=== PATIENT | female | born 1960 | race Caucasian/White ===

== ENCOUNTER → 2017-10-11 11:30 | Outpatient (CLI) | payer OTHER, SELFPAY ==
[2017-10-11 12:37] LABS: Add Manual Diff / Slide Review NO; Basophils Percent Auto 0.8 % (0-2); Eosinophils Percent Auto 1.9 % (2-4); Hematocrit 43.3 % (36-46); Lymphocytes Percent Auto 28.7 % (25-40); Mean Corpuscular HGB Conc 34.6 % (30-36); Mean Corpuscular Hemoglobin 30.9 PG (26-34); Mean Corpuscular Volume 89.5 fL (80-100); Monocytes Percent Auto 7.3 % (3-14); Neutrophils Absolute Auto 4600 /uL (3000-5900); Neutrophils Percent Auto 61.3 % (50-75); Platelet Count 265 X10^3/uL (150-400); Red Blood Cell Count 4.84 X10^6/uL (4.0-5.2); Red Cell Distribution Width 12.4 % (11.6-14.8); White Blood Cell Count 7.5 X10^3/uL (4.5-11.0)
[2017-10-11 12:48] LABS: Hemoglobin A1C% w Est Avg Glu 9.8 % (4.0-6.0)
[2017-10-11 13:04] LABS: Alanine Aminotransferase 84 IU/L (9-52); Albumin 4.6 g/dL (3.5-5.0); Albumin Globulin Ratio 1.7 (1.0-2.8); Alkaline Phosphatase 101 U/L (38-126); Aspartate Aminotransferase 84 IU/L (14-36); BUN Creatinine Ratio 18.3 (6-22); Bilirubin Total 0.7 mg/dL (0.2-1.3); Blood Urea Nitrogen 11 mg/dL (7-17); Carbon Dioxide 31 mmol/L (22-32); Chloride 96 mmol/L (98-107); Cholesterol 303 mg/dL (140-199); Estimated Glomerular Filt Rate > 60.0 mL/min (>60); Globulin 2.7 g/dL (1.7-4.1); Glucose 222 mg/dL (70-100); HDL Cholesterol 48 mg/dL (40-60); HEMOLYSIS < 15 (0-50); Potassium 4.6 mmol/L (3.4-5.1); Sodium 139 mmol/L (137-145); Total Protein 7.3 g/dL (6.3-8.2)
[2017-10-11 13:12] LABS: Triglycerides 679 mg/dL (35-150)
[2017-10-11 15:43] LABS: Creatinine Urine Random 240.5 mg/dL
[2017-10-11 16:00] LABS: Microalbumi Creatinin Ratio Ur 228.2 ug/mg CR (<30); Microalbumin Urine Random 54.9 mg/dL (0-1.6)
[2017-10-11 17:31] LABS: Free T3, Triiodothyronine Free 3.35 pg/mL (2.77-5.27); Free T4, Direct Thyroxine 1.12 ng/dL (0.78-2.19)
[2017-10-11 17:45] LABS: Thyroid Stimulating Hormone 2.44 uIU/mL (0.47-4.68)
== END ==
PROVIDERS: Physician Assistant; PCP Family Medicine; Visit Provider Family Medicine
DX: E10.9 Type 1 diabetes mellitus without complications (principal); E78.1 Pure hyperglyceridemia; I10 Essential (primary) hypertension; E11.9 Type 2 diabetes mellitus without complications; E78.5 Hyperlipidemia, unspecified; L65.9 Nonscarring hair loss, unspecified; Z13.29 Encounter for screening for other suspected endocrine disorder
CPT/HCPCS: 36415; 80053; 80061; 82043; 82570; 83036; 84439; 84443; 84481; 85025

== ENCOUNTER 2017-12-09 18:42 | Emergency (ER) | payer OTHER, SELFPAY ==
[2017-12-09 18:55] VITALS: BP 153/86; PULSE 74; RESP 16; TEMP 36.5; O2SAT 98; BMI 43.0
--- NOTE | 2017-12-09 18:58 | DI.RAD.S_ITS ---
PROCEDURE: XR CHEST 1V INDICATIONS: chest pain TECHNIQUE: One view of the chest was acquired. COMPARISON: [facility], , CHEST 2 VIEW, 04/16/2016, 16:17. FINDINGS: Surgical changes and devices: None. Lungs and pleura: No pleural effusions or pneumothorax. Lungs are clear. Mediastinum: Mediastinal contours appear normal. Heart size is normal. Bones and chest wall: No suspicious bony lesions. Overlying soft tissues appear unremarkable. IMPRESSION: No acute cardiopulmonary pathology. Dictated by: Smith Lerma M.D. on 12/09/2017 at 20:08 Approved by: Smith Lerma M.D. on 12/09/2017 at 20:08
--- NOTE | 2017-12-09 19:17 | ED_ITS ---
HPI - Neck Pain/Injury General Chief Complaint: Neck Pain/Injury Stated Complaint: NAUSEA LEFT SIDE NECK AND FACE PAIN SHOULDER ARM Time Seen by Provider: 12/09/17 19:16 Source: patient Mode of arrival: ambulatory Limitations: no limitations History of Present Illness HPI Narrative: Patient is a 57-year-old female here for evaluation left shoulder and left side of neck pain. Patient states that she is also having nausea. She states that she has a history of migraines and gets nauseous with her migraines. She states that she feels like she is having a ?minor migraine ? right now. States that she has had the symptoms 24 hr a day for the past 3 days. Went to see her chiropractor who told her she needed to come to the emergency department to rule out a heart attack. She is not having any chest pain. She states that her symptoms did start after minute neck adjustment that she had. She states that the chiropractor did not use high velocity with her neck but use the actuator Related Data Home Medications Medication Instructions Recorded Confirmed [COLLINSONIA ROOT] 1,000 mg PO QDAY #0 10/16/15 10/04/17 [COQ10] 200 mg PO QDAY #0 10/16/15 10/04/17 [HERB LAX] #0 10/16/15 10/04/17 [LIVER DTX] #0 10/16/15 10/04/17 [VITALIZED IMMUNITY] #0 10/16/15 10/04/17 [VITAMIN D3] 5,000 iu PO QDAY #0 10/16/15 10/04/17 aspirin 325 mg PO QDAY #0 tab 10/16/15 10/04/17 calcium carbonate 600 mg PO #0 10/16/15 10/04/17 magnesium amino acid chelate 250 mg PO QDAY #0 10/16/15 10/04/17 multivitamin [Multiple Vitamins] 1 tab PO QDAY #0 tab 10/16/15 10/04/17 [SIMPLEX F] #0 04/22/16 10/04/17 naproxen sodium [Aleve] #0 04/22/16 cetirizine 10 mg tablet 10 mg PO DAILY 10/04/17 10/04/17 glucosamine-chondroitin 250 mg-200 2 tab PO QPC 10/04/17 10/04/17 mg tablet metformin 850 mg tablet 850 mg PO ONCE tab 10/04/17 metoprolol succinate ER 50 mg 50 mg PO BID tab 10/04/17 tablet,extended release 24 hr ranitidine 75 mg tablet 75 mg PO DAILY PRN #0 tab 10/04/17 10/04/17 Previous Rx's Medication Instructions Recorded nitroglycerin [Nitrostat] 0.4 mg SUBLINGUAL SEE INSTRUCTIONS 04/16/16 #30 tab naratriptan 2.5 mg PO 1 AT ONSET PRN #12 tab 12/01/16 Glucose: Test Strips str QID #100 12/17/16 Lancet: Device box QID #1 12/17/16 Luck box QID #1 12/17/16 atorvastatin 40 mg tablet 40 mg PO HS #90 tab 10/04/17 fluoxetine 40 mg capsule 80 mg PO DAILY #180 cap 10/04/17 metformin 500 mg tablet 500 mg PO QPM #30 tab 10/04/17 clonazepam 0.5 mg tablet 0.5 mg PO BID PRN #60 tab 11/01/17 hydrocodone 5 mg-acetaminophen 325 1 tab PO Q6HP PRN #30 tab 11/02/17 mg tablet hydrochlorothiazide 25 mg tablet 25 mg PO QDAY #90 tab 11/29/17 metformin 500 mg tablet 500 mg PO DAILY #90 tab 11/29/17 prednisone 40 mg PO DAILY 5 Days #10 tab 12/09/17 Allergies Allergy/AdvReac Type Severity Reaction Status Date / Time mold [MOLD] Allergy Unknown Verified 12/09/17 18:54 penicillin G [PENICILLIN G] Allergy Unknown doesnt Verified 12/09/17 18:54 remember kathleen grass Allergy Unknown Uncoded 05/18/17 12:38 Review of Systems Constitutional Denies fever(s) and Reports headache(s) ENT Ears, Nose, Mouth, and Throat: Denies vertigo, Denies dizziness and Reports headache(s) Cardiovascular Denies chest pain, Denies syncope and Denies dyspnea Respiratory Denies dyspnea Gastrointestinal Gastrointestinal: Denies abdominal pain, Denies nausea and Denies vomiting Genitourinary Denies dysuria Musculoskeletal Reports myalgias (Left-sided neck) and Reports arthralgias (Left shoulder) Integumentary/Breasts Denies rash Neurologic Denies vertigo, Denies dizziness, Denies syncope and Reports headache(s) Hematologic/Lymphatic Denies easy bruising PFSH Medical History Alopecia (Chronic 04/2015) Cardiac arrhythmia (Chronic 1994) Chronic back pain (Chronic 1990) Depression (Chronic 2006) History of recurrent ear infection (Chronic) Hyperlipemia (Chronic) Hypertension (Chronic) Menopause (Chronic 2006) Migraines (Chronic 1975) 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) Type 2 diabetes mellitus (Chronic 2003) Chickenpox (Resolved 1966) Deep vein thrombosis (Resolved 2004) Fractures (Resolved 1966) Hemorrhoids (Resolved 1984) History of endometrial biopsy (Resolved 2005) Measles (Resolved 1966) Mumps (Resolved 1966) Pulmonary embolism (Resolved 2004) Skin cancer (Resolved 1990) Urinary incontinence (Resolved 2012) Surgical History Hx of heart surgery (Resolved 2004) Family History Father Congestive heart failure Diabetes mellitus Hyperlipidemia Hypertension Mother Congestive heart failure Cancer Hyperlipidemia Hypertension COPD (chronic obstructive pulmonary disease) Brain aneurysm Diverticulitis Brother Brain tumor Sister Brain tumor Cancer Grandfather No problems noted. Grandmother Diabetes mellitus Social History Smoking Status: Never smoker Exam Initial Vital Signs Initial Vital Signs: Vital Signs Temperature 97.7 F 12/09/17 18:55 Pulse Rate 74 12/09/17 18:55 Respiratory Rate 16 12/09/17 18:55 Blood Pressure 153/86 H 12/09/17 18:55 Pulse Oximetry 98 12/09/17 18:55 Const General: cooperative, healthy appearing, comfortable, well developed, well groomed and No acute distress Orientation: alert, awake and oriented x3 HENUT Head: normal to inspection and normocephalic Resp Effort & Inspection: normal respiratory effort Auscultation: clear to auscultation bilaterally Cardio Rate: regular rate Rhythm: regular rhythm Skin Lesions: no lesions Rashes: no rashes Neuro General: alert, awake and oriented x3 Cognition: normal cognition Speech: speech normal Motor: muscle tone normal throughout Sensory Exam: no sensory deficits noted Extrem General: normal to inspection and capillary refill normal Left upper extremity: normal to inspection and normal capillary refill; no edema Psych Appearance: grossly normal and well kempt Course Orders Ordered: ED Orders 12/09/17 18:58 XR chest 1V Stat EKG-12 Lead Stat 12/09/17 19:05 Complete Blood Count AUTO DIFF Stat Comprehensive Metabolic Panel Stat Lipase Stat Partial Thromboplastin Time Stat Prothrombin Time INR Stat Troponin & CK Cardiac Panel Stat 12/09/17 20:15 Urine Culture Stat Urine Microscopic Stat Vital Signs - 8 hr 12/09/17 18:55 12/09/17 19:44 12/09/17 20:52 Temperature 97.7 F 98.7 F Pulse Rate 74 87 75 Respiratory Rate 16 21 20 Blood Pressure 153/86 H 144/71 H Blood Pressure [Left Arm] 175/83 H Pulse Oximetry 98 100 97 MDM - Neck Pain/Injury Lab Data Attestation: I reviewed the patient's lab results. Result diagrams: 12/09/17 19:05 12/09/17 19:05 Lab Results 12/09/17 12/09/17 12/09/17 Range/Units 19:05 19:05 19:05 WBC 9.9 (4.5-11.0) X10^3/uL RBC 4.90 (4.0-5.2) X10^6/uL Hgb 15.3 (12.0-16.0) g/dL Hct 43.9 (36-46) % MCV 89.5 (80-100) fL MCH 31.1 (26-34) PG MCHC 34.8 (30-36) % RDW 12.6 (11.6-14.8) % Plt Count 254 (150-400) X10^3/uL Neut % (Auto) 61.9 (50-75) % Lymph % (Auto) 26.9 (25-40) % [place] % (Auto) 7.7 (3-14) % Eos % (Auto) 2.4 (2-4) % Baso % (Auto) 1.1 (0-2) % Neut # (Auto) 6100 H (2653-6087) /uL PT 11.3 (10.1-12.7) SECONDS INR 1.1 (0.9-1.3) APTT 31 (26.4-36.2) SECONDS Sodium 141 (137-145) mmol/L Potassium 3.5 (3.4-5.1) mmol/L Chloride 100 (98-107) mmol/L Carbon Dioxide 25 (22-32) mmol/L BUN 13 (7-17) mg/dL Creatinine 0.60 (0.52-1.04) mg/dL Estimated GFR > 60.0 (>60) mL/min BUN/Creatinine Ratio 21.7 (6-22) Glucose 189 H (70-100) mg/dL Calcium 9.3 (8.4-10.2) mg/dL Total Bilirubin 0.5 (0.2-1.3) mg/dL AST 86 H (14-36) IU/L ALT 91 H (9-52) IU/L Alkaline Phosphatase 104 (38-126) U/L Total Creatine Kinase 67 (30-135) U/L CK-MB (CK-2) TNP CK-MB (CK-2) Rel Index TNP Troponin I < 0.012 (0.01-0.034) ng/mL Total Protein 7.5 (6.3-8.2) g/dL Albumin 4.5 (3.5-5.0) g/dL Globulin 3.0 (1.7-4.1) g/dL Albumin/Globulin Ratio 1.5 (1.0-2.8) Lipase 55 (23-300) U/L Urine RBC (0-5/HPF) Urine WBC (0-5/HPF) Ur Squamous Epith Cells Amorphous Sediment Urine Bacteria (None) Hyaline Casts (None) Granular Casts (None) Urine Mucus (Negative) Ur Culture Indicated? Micro UA Comment 12/09/17 Range/Units 20:15 WBC (4.5-11.0) X10^3/uL RBC (4.0-5.2) X10^6/uL Hgb (12.0-16.0) g/dL Hct (36-46) % MCV (80-100) fL MCH (26-34) PG MCHC (30-36) % RDW (11.6-14.8) % Plt Count (150-400) X10^3/uL Neut % (Auto) (50-75) % Lymph % (Auto) (25-40) % [place] % (Auto) (3-14) % Eos % (Auto) (2-4) % Baso % (Auto) (0-2) % Neut # (Auto) (7468-2145) /uL PT (10.1-12.7) SECONDS INR (0.9-1.3) APTT (26.4-36.2) SECONDS Sodium (137-145) mmol/L Potassium (3.4-5.1) mmol/L Chloride (98-107) mmol/L Carbon Dioxide (22-32) mmol/L BUN (7-17) mg/dL Creatinine (0.52-1.04) mg/dL Estimated GFR (>60) mL/min BUN/Creatinine Ratio (6-22) Glucose (70-100) mg/dL Calcium (8.4-10.2) mg/dL Total Bilirubin (0.2-1.3) mg/dL AST (14-36) IU/L ALT (9-52) IU/L Alkaline Phosphatase (38-126) U/L Total Creatine Kinase (30-135) U/L CK-MB (CK-2) CK-MB (CK-2) Rel Index Troponin I (0.01-0.034) ng/mL Total Protein (6.3-8.2) g/dL Albumin (3.5-5.0) g/dL Globulin (1.7-4.1) g/dL Albumin/Globulin Ratio (1.0-2.8) Lipase (23-300) U/L Urine RBC None seen (0-5/HPF) Urine WBC 5-10/hpf H (0-5/HPF) Ur Squamous Epith Cells 1-5 /hpf Amorphous Sediment 1+ Urine Bacteria Few (2-10) H (None) Hyaline Casts 1-5/lpf (None) Granular Casts 0-1/lpf (None) Urine Mucus 3+ H (Negative) Ur Culture Indicated? Specimen cultured Micro UA Comment Not Reportable Urine Dip Bedside Urine Glucose 1000 mg/dl Bedside Urine Bilirubin - Negative Bedside Urine Ketone +/- 5 Urine Specific [place] 1.030 Bedside Urine Occult Blood - Negative Bedside Urine pH 5.5 Bedside Urine Protein + 30 Bedside Urine Urobilinogen - Negative Bedside Urine Nitrite - Negative Bedside Urine Leukocytes - Negative Esterase Imaging Data Chest x-ray: Radiologist's impression: [address] [address] XRay Report Signed Patient: Tegan Germain LMR#: [id number] : 2Acct:[id number] Age/Sex: 57 / FDate of Service: 12/09/17 Loc: ED Accession Number: [id number] Procedure: XR chest 1V Ordering Provider: Willard Duque D.O. PROCEDURE: XR CHEST 1V INDICATIONS: chest pain TECHNIQUE: One view of the chest was acquired. COMPARISON: [facility], CHEST 2 VIEW, 04/16/2016, 16:17. FINDINGS: Surgical changes and devices: None. Lungs and pleura: No pleural effusions or pneumothorax. Lungs are clear. Mediastinum: Mediastinal contours appear normal. Heart size is normal. Bones and chest wall: No suspicious bony lesions. Overlying soft tissues appear unremarkable. IMPRESSION: No acute cardiopulmonary pathology. Dictated by: Smith Lerma M.D. on 12/09/2017 at 20:08 Approved by: Smith Lerma M.D. on 12/09/2017 at 20:08 ECG Data Attestation: I personally reviewed and interpreted this ECG as follows: Prior ECG tracings: not available for review Interpretation: Sinus rhythm Ventricular rate is 68 exam normal axis Normal QRS Normal QTC No ST T wave changes MDM Narrative Medical decision making narrative: Patient has had 3 days of symptoms. Troponin is negative. EKG is unremarkable. Chest x-ray is unremarkable. Low suspicion for infection. No trauma. No indication for radiologic studies the shoulder or the neck. Patient is having a ?minor migraine ?according to her report. Considered vertebral artery dissection given her neck pain that started after her chiropractic visit but she stated that the chiropractor did not use high velocity adjustment to her neck just the actuator hold on further workup for now. Patient was given return precautions. She expressed understanding and agreement with plan. Discharge Plan Departure Patient Disposition: Home Clinical Impression: Left shoulder pain Discharge Date/Time: 12/09/17 20:55 Interventions: ED Discharge Assessment Last Done: 12/09/17 20:52 Instructions: How To Perform RICE (Rest, Ice, Compress, Elevate), DI for Shoulder Pain Activity Restrictions/Additional Instructions: Recommend you contact your primary doctor for a follow-up to further discuss her left shoulder pain and further workup if needed. Return to the emergency department for any new or worsening symptoms. Prescriptions: New prednisone 20 mg tablet 40 mg PO DAILY 5 Days Qty: 10 RF: 0 No Action metoprolol succinate [Toprol XL] 50 mg tablet extended release 24 hr 50 mg PO BID RF: 0 metformin 850 mg tablet 850 mg PO ONCE RF: 0 cetirizine [Zyrtec] 10 mg tablet 10 mg PO DAILY RF: 0 glucosamine-chondroitin [Osteo Bi-Flex] 250-200 mg tablet 2 tab PO QPC RF: 0 metformin 500 mg tablet 500 mg PO QPM Qty: 30 RF: 0 atorvastatin 40 mg tablet 40 mg PO HS Qty: 90 RF: 3 fluoxetine 40 mg capsule 80 mg PO DAILY Qty: 180 RF: 3 aspirin 325 MG tablet 325 mg PO QDAY Qty: 0 RF: 0 calcium carbonate 600 MG tablet 600 mg PO Qty: 0 RF: 0 magnesium amino acid chelate 100 MG tablet 250 mg PO QDAY Qty: 0 RF: 0 [COLLINSONIA ROOT] 1,000 mg PO QDAY Qty: 0 RF: 0 [COQ10] 200 mg PO QDAY Qty: 0 RF: 0 [VITAMIN D3] 5,000 iu PO QDAY Qty: 0 RF: 0 [VITALIZED IMMUNITY] Qty: 0 RF: 0 [HERB LAX] Qty: 0 RF: 0 multivitamin [Multiple Vitamins] 1 EACH tablet 1 tab PO QDAY Qty: 0 RF: 0 [LIVER DTX] Qty: 0 RF: 0 nitroglycerin [Nitrostat] 0.4 MG tablet, sublingual 0.4 mg Sublingual SEE INSTRUCTIONS Qty: 30 RF: 1 naproxen sodium [Aleve] 220 MG tablet Qty: 0 RF: 0 [SIMPLEX F] Qty: 0 RF: 0 naratriptan 2.5 MG tablet 2.5 mg PO 1 AT ONSET PRNQty: 12 RF: 11 Glucose: Test Strips QID Qty: 100 RF: 3 Lancet: Device QID Qty: 1 RF: 3 Luck QID Qty: 1 RF: 3 ranitidine HCl 75 mg tablet 75 mg PO DAILY PRN (Reason: indigestion) Qty: 0 RF: 0 clonazepam 0.5 mg tablet 0.5 mg PO BID PRN (Reason: anxiety) Qty: 60 RF: 0 hydrocodone-acetaminophen 5-325 mg tablet 1 tab PO Q6HP PRN (Reason: pain) Qty: 30 RF: 0 hydrochlorothiazide 25 mg tablet 25 mg PO QDAY Qty: 90 RF: 2 metformin 500 mg tablet 500 mg PO DAILY Qty: 90 RF: 0
[2017-12-09 19:19] LABS: Add Manual Diff / Slide Review NO; Basophils Percent Auto 1.1 % (0-2); Eosinophils Percent Auto 2.4 % (2-4); Hematocrit 43.9 % (36-46); Hemoglobin 15.3 g/dL (12.0-16.0); Lymphocytes Percent Auto 26.9 % (25-40); Mean Corpuscular HGB Conc 34.8 % (30-36); Mean Corpuscular Hemoglobin 31.1 PG (26-34); Mean Corpuscular Volume 89.5 fL (80-100); Monocytes Percent Auto 7.7 % (3-14); Neutrophils Absolute Auto 6100 /uL (3000-5900); Neutrophils Percent Auto 61.9 % (50-75); Platelet Count 254 X10^3/uL (150-400); Red Cell Distribution Width 12.6 % (11.6-14.8); White Blood Cell Count 9.9 X10^3/uL (4.5-11.0)
[2017-12-09 19:27] LABS: INR 1.1 (0.9-1.3); Prothrombin Time 11.3 SECONDS (10.1-12.7)
[2017-12-09 19:29] LABS: PTT Partial Thromboplastin Tim 31 SECONDS (26.4-36.2)
[2017-12-09 19:34] LABS: Alanine Aminotransferase 91 IU/L (9-52); Albumin 4.5 g/dL (3.5-5.0); Albumin Globulin Ratio 1.5 (1.0-2.8); Alkaline Phosphatase 104 U/L (38-126); Aspartate Aminotransferase 86 IU/L (14-36); BUN Creatinine Ratio 21.7 (6-22); Bilirubin Total 0.5 mg/dL (0.2-1.3); Blood Urea Nitrogen 13 mg/dL (7-17); Calcium 9.3 mg/dL (8.4-10.2); Carbon Dioxide 25 mmol/L (22-32); Chloride 100 mmol/L (98-107); Creatine Kinase 67 U/L (30-135); Estimated Glomerular Filt Rate > 60.0 mL/min (>60); Glucose 189 mg/dL (70-100); HEMOLYSIS < 15 (0-50); Lipase 55 U/L (23-300); Potassium 3.5 mmol/L (3.4-5.1); Sodium 141 mmol/L (137-145); Total Protein 7.5 g/dL (6.3-8.2)
[2017-12-09 19:44] VITALS: BP 175/83; PULSE 87; RESP 21; O2SAT 100
[2017-12-09 19:46] LABS: Troponin I < 0.012 ng/mL (0.01-0.034)
[2017-12-09 20:18] LABS: RBC Urine None Seen (0-5/HPF)
[2017-12-09 20:26] LABS: Amorphous Sediment Urine 1+; Bacteria Urine Few (2-10); Granular Casts Urine 0-1/LPF; Hyaline Casts Urine 1-5/LPF; Squamous Epithelial Cell Urine 1-5 /HPF; WBC Urine 5-10/HPF (0-5/HPF)
[2017-12-09 20:27] LABS: Culture Indicated Urine Specimen Cultured; Mucus Urine 3+ (Negative)
[2017-12-09 20:52] VITALS: BP 144/71; PULSE 75; RESP 20; TEMP 37.1; O2SAT 97
== END 2017-12-09 20:55 | disposition home or self-care (01) ==
PROVIDERS: Emergency Provider Emergency Medicine; PCP Family Medicine
DX: M25.512 Pain in left shoulder (principal)
CPT/HCPCS: 36591; 71045; 80053; 81003; 81015; 82550; 83690; 84484; 85025; 85610; 85730; 87086; 93005; 99283; 99285

== ENCOUNTER → 2017-12-16 17:07 | Outpatient (CLI) | payer OTHER, SELFPAY ==
--- NOTE | 2017-12-16 17:11 | DI.RAD.S_ITS ---
PROCEDURE: XR CERVICAL SPINE 2V OR 3V INDICATIONS: neck pain TECHNIQUE: 3 view(s) of the cervical spine were acquired. COMPARISON: None. FINDINGS: Bones: No fractures or dislocations to the C7-T1 level. The lateral masses of C1 appear intact on the odontoid view. No suspicious bony lesions. There is mild straightening of normal cervical curvature. Anterior osteophytes are present at C5-6. Soft tissues: No prevertebral soft tissue swelling. IMPRESSION: Cervical straightening with degenerative changes at C5-6. Dictated by: Tricia Epps M.D. on 12/16/2017 at 19:24 Approved by: Tricia Epps M.D. on 12/16/2017 at 19:25
== END ==
PROVIDERS: PCP Family Medicine; Visit Provider Family Medicine
DX: M50.122 Cervical disc disorder at C5-C6 level with radiculopathy (principal)
CPT/HCPCS: 72040

== ENCOUNTER → 2018-02-16 08:08 | Outpatient (CLI) | payer OTHER, SELFPAY ==
--- NOTE | 2018-02-16 08:15 | DI.MG.S_ITS ---
Patient Name: SASHA ROBISON date: 1960 Sex: F Attending Physician: Ld Indications: Date: 02/16/2018 08:11 At the request of: BOBBI VARGAS Procedure: MM screening mammo BI BILATERAL DIGITAL SCREENING MAMMOGRAM 3D/2D WITH CAD: 02/16/2018 CLINICAL: Routine screening. Family history of breast cancer. Comparison is made to exams dated: 06/07/2016 mammogram - [facility], 2015 mammogram, and 06/16/2010 mammogram - [facility]. There are scattered fibroglandular elements in both breasts. Current study was also evaluated with a Computer Aided Detection (CAD) system. There are benign calcifications in both breasts. No significant masses, calcifications, or other findings are seen in either breast. There has been no significant interval change. IMPRESSION: There is no mammographic evidence of malignancy. A 1 year screening mammogram is recommended. This exam was interpreted at Station ID: [id number]. NOTE: For mammograms, a report in lay terms will be sent to the patient. Approximately 15% of breast malignancies will not be visualized mammographically. In the management of a palpable breast mass, a negative mammogram must not discourage biopsy of a clinically suspicious lesion. Electronically Signed By: Stuart howell/sanford:02/16/2018 09:58:19 letter sent: Normal Exam ACR BI-RADS Category 2: Benign Finding(s) 3342F
== END ==
PROVIDERS: PCP Family Medicine; Visit Provider Family Medicine
DX: Z12.31 Encounter for screening mammogram for malignant neoplasm of breast (principal); Z80.3 Family history of malignant neoplasm of breast
CPT/HCPCS: 77063; 77067

== ENCOUNTER → 2020-04-18 16:39 | Outpatient (CLI) | payer OTHER, SELFPAY ==
[2020-04-18] MEDS: COVID-19 VACC, Ad26(JANSSEN)/PF 0.5 ML IM (16:44)
== END ==
PROVIDERS: PCP Family Medicine; Visit Provider Internal Medicine
DX: Z23 Encounter for immunization (principal)
CPT/HCPCS: 0031A; 91303